=== PATIENT | female | born 1955 | race Two or more races ===

== ENCOUNTER 2017-10-11 13:36 | Emergency (ER) | payer OTHER ==
[~2017-10-11] VITALS: Ht 157.5 cm; Wt 77.1 kg
[~2017-10-11 13:36] MED LIST: ASTELIN137 MCG NS; BENADRYL ALLE12.5 MG PO; HYZAAR 50-12.1 UDTAB PO; NORTUSS-EX LIQ118 ML PO; NORVASC2.5 MG PO; ZITHROMAX TRI-500 MG PO
== END 2017-10-11 17:40 | disposition home or self-care (01) ==
LOC: ER 13:36
DX: B34.9 Viral infection, unspecified (principal)

== ENCOUNTER 2019-06-25 20:23 | Emergency (ER) | payer OTHER ==
[~2019-06-25] VITALS: Ht 152.4 cm; Wt 77.1 kg
== END 2019-06-26 10:27 | disposition home or self-care (01) ==
LOC: ER 20:23 → CPU-OBS 20:25 → ER 06-26 10:27
DX: R07.89 Other chest pain (principal); M94.0 Chondrocostal junction syndrome [Tietze]
CPT/HCPCS: G0378; G0379; 93005

== ENCOUNTER 2021-07-25 02:58 | Emergency (ER) | payer OTHER ==
[~2021-07-25] VITALS: Ht 157.5 cm; Wt 72.6 kg
[2021-07-25] MEDS ORDERED: ATORVASTATIN CA40 MG PO (03:19)
[2021-07-25] MEDS ORDERED: PLAVIX75 MG PO (03:19)
[2021-07-25] MEDS ORDERED: LOSARTAN POTASS50 MG PO (03:20)
== END 2021-07-25 06:53 | disposition home or self-care (01) ==
LOC: ER 02:58
DX: G89.29 Other chronic pain (principal); M54.89 Other dorsalgia

== ENCOUNTER 2021-08-10 12:00 | Emergency (ER) | payer OTHER ==
[~2021-08-10] VITALS: Ht 157.5 cm; Wt 72.6 kg
[~2021-08-10 12:00] MED LIST changes: +ATORVASTATIN CA40 MG PO; +LOSARTAN POTASS50 MG PO; +PLAVIX75 MG PO
== END 2021-08-10 13:04 | disposition home or self-care (01) ==
LOC: ER 12:00
DX: M54.59 Other low back pain (principal)

== ENCOUNTER → 2022-01-07 | Emergency (ER) | payer OTHER ==
[~2022-01-07] VITALS: Ht 157.5 cm; Wt 72.6 kg
[~2022-01-07] MED LIST changes: +EZETIMIBE10 MG PO; +IRBESARTAN300 MG PO; +METOPROLOL SUCC25 MG PO; +ST. JOSEPH ASPI81 M2 PO
== END | disposition left against medical advice (07) ==
LOC: ER 10:28
DX: Z53.21 Procedure and treatment not carried out due to patient leaving prior to being seen by health care provider (principal)

== ENCOUNTER → 2024-02-20 | Emergency (ER) | payer OTHER ==
[~2024-02-20] VITALS: Ht 152.4 cm; Wt 72.6 kg
[~2024-02-20] MED LIST changes: +DICLOFENAC SODI75 MG PO; +KETOROLAC TROMETHAMINE 60 MG VIAL IM ONE; +TRIAMCINOLONE ACETONIDE 40 MG/ML VIAL IM ONE
== END | disposition home or self-care (01) ==
LOC: ER 12:20
DX: M54.50 Low back pain, unspecified (principal); I10 Essential (primary) hypertension; Z88.5 Allergy status to narcotic agent
CPT/HCPCS: 96372; 99282; J1885; J3301